=== PATIENT | male | born 1985 | race Caucasian/White ===

== ENCOUNTER → 2017-06-11 09:28 | Outpatient (CLI) | payer OTHER, SELFPAY ==
--- NOTE | 2017-06-11 09:37 | RAD_ITS ---
STUDY: X-RAY - LUMBAR SPINE REASON FOR EXAM: Male, 31 years old. Low back pain. TECHNIQUE: 5 view(s) of the lumbar spine were obtained. COMPARISON: 03/03/2014 FINDINGS: Normal lumbar lordosis. There is no substantial scoliosis. There is a normal alignment of the vertebrae. Normal vertebral bodies and endplates. Normal disc space heights. There is no demonstrated fracture. The soft tissue structures are unremarkable. RAD/L/S Spine Min 4 Views IMPRESSION: Normal x-ray examination of the lumbar spine. Electronically Signed: Jose Irving MD at 17:41 EDT , Service support ,
== END ==
PROVIDERS: Family Provider Family Medicine; PCP Family Medicine; Visit Provider Family Medicine
DX: M51.16 Intervertebral disc disorders with radiculopathy, lumbar region (principal)
CPT/HCPCS: 72110

== ENCOUNTER 2019-03-28 17:03 | Emergency (ER) | payer OTHER, SELFPAY ==
[2019-03-28 17:04] VITALS: BP 123/76; PULSE 112; RESP 17; TEMP 36.8; O2SAT 99; BMI 24.0
[2019-03-28 17:37] LABS: Absolute Neutrophil Count 8.5 X10^3/uL (2.0-7.7); Basophil# 0.05 X10^3/uL; Basophil% 0.4 % (0-1); Eosinophil# 0.08 X10^3/uL; Eosinophils% 0.7 % (0-5); Hematocrit 50.1 % (40-54); Hemoglobin 17.1 g/dL (13.0-16.5); Lymphocyte % 14.9 % (19-41); Mean Corp Hgb Conc 34.1 g/dL (32-36); Mean Corpuscular Hgb 30.9 pg (27.0-32.0); Mean Corpuscular Volume 90.6 fL (80-94); Mean Platelet Vol. 10.7 fl (6.2-12.0); Monocyte# 1.07 X10^3/uL; Monocyte% 9.4 % (0-10); NRBC Flagged by Analyzer 0 % (0-5); Neutrophil % 74.3 % (47-70); Platelet Count 300 K/mm3 (150-450); RBC Distribution Width CV 12.1 % (11.6-14.6); RBC Distribution Width SD 39.7 fl (35.1-43.9); Red Blood Count 5.53 M/mm3 (4.6-6.2); White Blood Count 11.4 K/mm3 (4.4-11.0)
[2019-03-28 17:47] LABS: Anion Gap 6 (5-15); BUN 8 mg/dL (7-18); BUN/Creat Ratio 6.3 RATIO (10-20); Calcium,Total 9.9 mg/dL (8.5-10.1); Chloride 105 mmol/L (98-107); Creatinine, Serum 1.27 mg/dL (0.70-1.30); EST Glomerular Filtration Rate 69 mL/min (>60); Est Glom Filt Rate - Afr Amer 84 mL/min (>60); Estimated Creatinine Clearance 80.04 ml/min; Glucose 110 mg/dL (74-106); Potassium 4.2 mmol/L (3.5-5.1); Sodium Level 142 mmol/L (136-145)
--- NOTE | 2019-03-28 18:12 | ED.DCSUM_ITS ---
History of Present Illness Chief Complaint: Abd Pain Informant: Patient Onset: Yesterday Narrative: Reports upper mid abdominal pain since 10:30 PM last evening. Large normal bowel movement at 11:30 PM. Started vomiting multiple times until 4 AM along with one loose stool. No hematemesis, melena, hematochezia. He ate leftover salad and chicken for the day prior. Father had prescription for Zofran taken at 7 AM. Arrival to ED currently 6 PM, had one emesis in the ED. Decreased oral intake. No urinary symptoms. History of anxiety on medications. Surgical history is only pilonidal cyst. No allergies. Denies any significant alcohol history. Prior similar symptoms: No Past Medical History - Allergies and Home Meds Allergies/Adverse Reactions: Allergies No Known Allergies Allergy (Verified 03/28/19 17:03) Primary Care Physician: Yassine Fernandez MD [Primary Care Provider] - Past Medical History: - - Anxiety Surgical History: - - Pilonidal cyst Physical Exam Vital Signs/Narrative: Vital Signs Temp Pulse Resp BP Pulse Ox 03/28/19 17:04 98.3 F 112 H 17 123/76 H 99 Inital Vital Signs reviewed: Yes General: Well nourished, Well developed, No Acute Distress Head: Normocephalic, Atraumatic Eyes: Perrl, EOMI ENT: Moist mucous membranes, No rhinorrhea, Dry mucous membranes Neck: Supple, Nontender Cardiovascular: Regular rate, No murmurs, Tachycardia Respiratory: No distress, CTA bilaterally, Chest nontender Abdomen: Soft, Nondistended, Normal bowel sounds, - - Tenderness epigastric and left lower quadrant, negative Boss's and McBurney's. No guarding or rebound. Back: Nontender, Normal Inspection Extremities: Nontender, No edema Skin: Normal color, No rash Neurological: Alert, Oriented x3, Cranial nerves II-XII grossly intact, Normal Strength, Normal Sensation Psychological: Normal affect, Normal Mood Diagnostic/Tx/Re-eval Clinical Impression(s) from Imaging Studies Abdomen/Pelvis CT 03/28/19 19:22 IMPRESSION: Fluid-filled loops of right hemicolon and transverse colon suggesting diarrhea. No evidence of acute findings otherwise. Questionable bladder wall thickening versus underdistention of the bladder Electronically Signed: Rusty Keith DO at 20:19 EST Tel , Service support , Abnormal Lab Results 03/28/19 03/28/19 03/28/19 17:07 17:07 17:07 WBC 11.4 H RBC 5.53 Hgb 17.1 H Hct 50.1 MCV 90.6 MCH 30.9 MCHC 34.1 RDW Std Deviation 39.7 RDW Coeff of Gabriela 12.1 Plt Count 300 MPV 10.7 Immature Gran % (Auto) 0.300 Neut % (Auto) 74.3 H Lymph % (Auto) 14.9 L Beaver % (Auto) 9.4 Eos % (Auto) 0.7 Baso % (Auto) 0.4 Absolute Neuts (auto) 8.5 H Absolute Lymphs (auto) 1.70 Nucleated RBC % 0 Sodium 142 Potassium 4.2 Chloride 105 Carbon Dioxide 31.0 Anion Gap 6 BUN 8 Creatinine 1.27 Estim Creat Clear Calc 80.04 Est GFR (MDRD) Af Amer 84 Est GFR (MDRD) Non-Af 69 BUN/Creatinine Ratio 6.3 L Glucose 110 H Calcium 9.9 Total Bilirubin 0.90 Direct Bilirubin 0.20 AST 12 L ALT 28 Alkaline Phosphatase 106 Total Protein 7.4 Albumin 4.1 Globulin 3.3 Lipase Urine Color Urine Clarity Urine pH Ur Specific [place] Urine Protein Urine Glucose (UA) Urine Ketones Urine Occult Blood Urine Nitrite Urine Bilirubin Urine Urobilinogen Ur Leukocyte Esterase Urine RBC Urine WBC Ur Squamous Epith Cells Urine Bacteria Urine Mucus 03/28/19 03/28/19 17:07 21:00 WBC RBC Hgb Hct MCV MCH MCHC RDW Std Deviation RDW Coeff of Gabriela Plt Count MPV Immature Gran % (Auto) Neut % (Auto) Lymph % (Auto) Beaver % (Auto) Eos % (Auto) Baso % (Auto) Absolute Neuts (auto) Absolute Lymphs (auto) Nucleated RBC % Sodium Potassium Chloride Carbon Dioxide Anion Gap BUN Creatinine Estim Creat Clear Calc Est GFR (MDRD) Af Amer Est GFR (MDRD) Non-Af BUN/Creatinine Ratio Glucose Calcium Total Bilirubin Direct Bilirubin AST ALT Alkaline Phosphatase Total Protein Albumin Globulin Lipase 129 Urine Color Yellow Urine Clarity Sl. Cloudy Urine pH 7.0 Ur Specific [place] 1.005 Urine Protein Negative Urine Glucose (UA) Normal Urine Ketones 50 H Urine Occult Blood Negative Urine Nitrite Negative Urine Bilirubin Negative Urine Urobilinogen Normal Ur Leukocyte Esterase Negative Urine RBC 0 SEEN Urine WBC 0 SEEN Ur Squamous Epith Cells 0-5 SEEN Urine Bacteria 0 SEEN Urine Mucus 0 SEEN - Medical Decision Making Patient tender epigastric left lower quadrant. Declined any pain medicines. Labs white count 11.4 normal lipase and LFTs. Given Zofran there is IV with no emesis. Pepcid was added for his epigastric tenderness, CT abdomen and pelvis IV contrast nonspecific fluid-filled bowels normal appendix, no signs of diverticulitis. There is a thickened bladder however could be decompressed, eventual urine negative for any blood or infection there was ketones. Given total 2 L of IV fluids. Prescription for Bentyl as needed he has Zofran at [facility]. He will follow-up as an outpatient. All questions were answered. ED Disposition - Plan for ED Patient: Disposition: Home or Assisted Living Diagnosis: Abdominal pain, Vomiting, Diarrhea Instructions: ABDOMINAL PAIN, Unkown Cause, (Male), DIET, Vomiting or Diarrhea [6yr-Adult] Prescriptions: Dicyclomine HCl [Bentyl] 20 mg PO Q8H PRN PRN #12 capsule PRN Reason: abdominal pain Referrals: Yassine Fernandez MD [Primary Care Provider] - 3-5 Days if not improving
[2019-03-28] MEDS: 0.9% Normal Saline 1,000 ML 999 ML IV ×2 (18:18→20:00)
[2019-03-28] MEDS: Ondansetron 4 MG/2 ML Vial IV (18:30)
[2019-03-28 18:52] LABS: AST(SGOT) 12 U/L (15-37); Alanine Aminotransfer ALT/SGPT 28 U/L (16-61); Albumin, Serum 4.1 g/dL (3.2-5.0); Alkaline Phosphatase 106 U/L (45-117); Globulin 3.3 g/dL (2.2-4.2); Protein, Total 7.4 g/dL (6.4-8.2)
[2019-03-28 18:56] LABS: Lipase 129 U/L (73-393)
--- NOTE | 2019-03-28 19:22 | CT_ITS ---
STUDY: CT ABDOMEN AND PELVIS WITHOUT CONTRAST REASON FOR EXAM: Male, 33 years old. RIGHT UPPER MID ABD PAIN N/V/D SINCE LAST NIGHT. H/O GERD. RADIATION DOSAGE (If Supplied By Facility): CTDIvol = ( 9.8 ) mGy, DLP = ( 487.61 ) mGycm TECHNIQUE: Transaxial images were obtained from the dome of the diaphragm to the symphysis pubis without oral contrast, and without intravenous contrast. Sagittal and coronal images were reconstructed. Individualized dose optimization techniques were used for this CT. COMPARISON: None. FINDINGS: The visualized lung bases are unremarkable. The visualized portions of the heart are within normal limits. Normal liver. Normal gallbladder and extrahepatic biliary system. Normal spleen. Normal pancreas. Normal bilateral adrenal glands. Normal right kidney. Normal left kidney. Normal visualized stomach. Normal small intestine. Fluid-filled right hemicolon and transverse colon suggesting diarrhea. No evidence of acute diverticulitis or colitis. The appendix is visualized and appears normal. Normal abdominal aorta. Normal inferior vena cava. Normal retroperitoneum. Questionable bladder wall thickening versus underdistention. Normal visualized prostate gland. Normal abdominal wall. Normal osseous structures. CT/Abdomen/Pelvis W IV Cont ONLY IMPRESSION: Fluid-filled loops of right hemicolon and transverse colon suggesting diarrhea. No evidence of acute findings otherwise. Questionable bladder wall thickening versus underdistention of the bladder Electronically Signed: Rusty Keith DO at 20:19 EST Tel , Service support ,
[2019-03-28 19:51] VITALS: BP 133/79; PULSE 86
[2019-03-28] MEDS: Famotidine 200 MG/20 ML MDV 20 MG in 0.9% Normal Saline (Pres. free 8 ML 300 MG IV (19:51)
[2019-03-28 21:11] LABS: Bacteria 0 SEEN /hpf (None Seen); Mucous, Urine 0 SEEN /hpf (<or=2+); Red Blood Cells-Urine 0 SEEN /hpf (0-5); White Blood Cells 0 SEEN /hpf (0-5)
[2019-03-28 21:14] LABS: Color, Urine Yellow (Yellow); Glucose, Dipstick Normal (Normal); Ketone-Dipstick 50 mg/dl (Negative); Leukocyte Esterase-Dipstick Negative /ul (Negative); Nitrite-Dipstick Negative (Negative); Occult Blood-Urine Negative /ul (Negative); Protein-Dipstick Negative (Negative); Specific Gravity, Urine 1.005 (1.002-1.030); Urine Bilirubin Dipstick Negative (Negative); Urine Clarity Sl. Cloudy (Clear); Urine Urobilinogen Normal (Normal)
[2019-03-28 21:28] LABS: Squamous Epithelial Cells - UA 0-5 SEEN /hpf (0-5)
== END 2019-03-28 21:56 | disposition home or self-care (01) ==
PROVIDERS: Emergency Provider Emergency Medicine; PCP Family Medicine
DX: R10.816 Epigastric abdominal tenderness (principal); R11.2 Nausea with vomiting, unspecified; R19.7 Diarrhea, unspecified; F41.9 Anxiety disorder, unspecified; Z79.899 Other long term (current) drug therapy
CPT/HCPCS: 36415; 74177; 80048; 80076; 81001; 83690; 85025; 96361; 96374; 96375; 99283; J7030; Q9967; A4216; J2405; J3490

== ENCOUNTER → 2020-03-12 | Outpatient (CLI) | payer OTHER, SELFPAY | END | disposition home or self-care (01) | LOC: LABSPEC 15:30 | PROVIDERS: PCP Family Medicine; Visit Provider Registered Nurse | DX: U07.1 COVID-19 (principal); J06.9 Acute upper respiratory infection, unspecified | CPT/HCPCS: 87633; 87635; U0005; U0003 ==

== ENCOUNTER → 2021-10-05 | Outpatient (CLI) | payer OTHER, SELFPAY ==
[2021-10-05 12:04] LABS: Absolute Lymphocyte Count 1.62 X10^3/uL (0.83-4.51); Absolute Neutrophil Count 3.7 X10^3/uL (2.0-7.7); Basophil# 0.02 X10^3/uL; Basophil% 0.3 % (0-1); Eosinophil# 0.22 X10^3/uL; Eosinophils% 3.6 % (0-5); Hematocrit 42.8 % (40-54); Hemoglobin 14.6 g/dL (13.0-16.5); Lymphocyte # 1.62 X10^3/ul (0.83-4.51); Lymphocyte % 26.3 % (19-41); Mean Corp Hgb Conc 34.1 g/dL (32-36); Mean Corpuscular Hgb 31.2 pg (27.0-32.0); Mean Corpuscular Volume 91.5 fL (80-94); Mean Platelet Vol. 11.6 fl (6.2-12.0); Monocyte# 0.56 X10^3/uL; Monocyte% 9.1 % (0-10); NRBC Flagged by Analyzer 0 % (0-5); Neutrophil # 3.73 X10^3/uL (2.7-7.7); Neutrophil % 60.4 % (47-70); Platelet Count 221 K/mm3 (150-450); RBC Distribution Width CV 12.4 % (11.6-14.6); Red Blood Count 4.68 M/mm3 (4.6-6.2); White Blood Count 6.2 K/mm3 (4.4-11.0)
[2021-10-05 12:27] LABS: Vitamin B12 306 pg/mL (211-911); Vitamin D,25 Hydroxy 55.1 ng/mL
[2021-10-05 12:34] LABS: ALB/GLOB Ratio 1.1 RATIO (0.9-2.4); AST(SGOT) 14 U/L (15-37); Alanine Aminotransfer ALT/SGPT 26 U/L (16-61); Albumin, Serum 2.9 g/dL (3.2-5.0); Alkaline Phosphatase 69 U/L (45-117); Anion Gap 4 (5-15); BUN 22 mg/dL (7-18); BUN/Creat Ratio 27.2 RATIO (10-20); Calcium,Total 8.5 mg/dL (8.5-10.1); Chloride 110 mmol/L (98-107); Cholesterol 110 mg/dL (200); Creatinine, Serum 0.81 mg/dL (0.70-1.30); EST Glomerular Filtration Rate 115 mL/min (>60); Est Glom Filt Rate - Afr Amer 139 mL/min (>60); Ferritin 11 ng/mL (26-388); Globulin 2.6 g/dL (2.2-4.2); Glucose 86 mg/dL (74-106); High Density Lipoprotein 34 mg/dL; Iron 75 ug/dL (65-175); Potassium 4.4 mmol/L (3.5-5.1); Protein, Total 5.5 g/dL (6.4-8.2); Sodium Level 140 mmol/L (136-145); Thyroid Stim Hormone (TSH) 1.45 uIU/mL (0.358-3.74); Triglycerides 90 mg/dL; Very Low Density Lipoprotein 18 mg/dL (5-40)
== END | disposition home or self-care (01) ==
LOC: MFPLAB 09:41
PROVIDERS: PCP Family Medicine; Referring Provider Family Medicine; Visit Provider Family Medicine
DX: F50.2 Bulimia nervosa (principal); Z13.220 Encounter for screening for lipoid disorders
CPT/HCPCS: 36415; 80053; 80061; 82306; 82607; 82728; 83540; 84443; 85025

== ENCOUNTER 2022-03-28 10:11 | Day surgery (SDC) | payer OTHER, SELFPAY ==
[2022-03-28] VITALS (7 sets, daily range): BP systolic 86–113; BP diastolic 56–70; PULSE 70–85; RESP 12–18; TEMP 36.2–36.4; O2SAT 94–100; BMI 24.3
--- NOTE | 2022-03-28 | GASB_PTH ---
PATIENT: LORETA GOEL LOC: EN U#:[id number] AGE/SX: 36/M ROOM: RE03/28/[address]: Dr. Torrey Ruiz MD : 1985 BED: DIS: 03/28/2022 SPEC #: [id number] RECD: 03/28/22 14:13 STATUS: NICOLLE OTILIA #: [id number] LAURITA: 03/28/22 00:[address]: Torrey Ruiz DEPT: SURGICAL PATHOLOGY RECD BY: Dakota Evans ENTERED: 03/28/22 14:14 SP TYPE: Gastric Bx OTHR DR: Dr. Keo Fernandez MD Tissues: A - Duodenum, NOS B - Gastric mucous membrane C - Esophageal mucous membrane Procedures: Special Stain Group II Surgery Specimen Level IV Alcian Blue/PAS (control) HEADER OPERATION: EGD ([facility] [place]) with dilation and biopsy PRE-OP DIAGNOSIS: GERD TISSUE SUBMITTED: A ? Duodenum biopsy, B ? Prepyloric biopsy, C ? Distal esophagus MICROSCOPIC DIAGNOSIS A. Duodenum, biopsy: No pathologic change. B. Prepyloric biopsy: Marked chronic inflammation with focal acute inflammation. Focal intestinal metaplasia. No evidence of dysplasia. See comment. C. Distal esophagus, biopsy: Gastroesophageal junctional mucosa with chronic inflammation. No evidence of goblet cell metaplasia. See comment. AM:samson 03/29/2022 COMMENT B. The results of immunohistochemistry for Helicobacter pylori will be reported separately ([id number]). Immunohistochemistry ([id number]) for P53 and Ki-67 will be performed and results will be reported separately. Alcian blue/PAS stain with matched control supports the above diagnosis. C. Alcian blue/PAS stain with matched control supports the above diagnosis. MICROSCOPIC DESCRIPTION Slides are reviewed. GROSS DESCRIPTION A - Received in fixative is one container labeled with the patient's name and designated duodenum biopsy. The specimen consists of one irregular fragment of light hull soft tissue that measures 0.3 x 0.3 x 0.1 cm. The specimen is totally submitted in one cassette. B - Received in fixative is one container labeled with the patient's name and designated prepyloric biopsy. The specimen consists of one irregular fragment of light hull soft tissue that measures 0.4 x 0.3 x 0.1 cm. The specimen is totally submitted in one cassette. C - Received in fixative is one container labeled with the patient's name and designated distal esophagus. The specimen consists of multiple irregular fragments of light hull soft tissue that in aggregate measure 1 x 0.5 x 0.1 cm. The specimen is totally submitted in one cassette. / TREVOR:samson 03/28/2022 TC:3 CPT: 85592 x3, 60019 x2
[2022-03-28] MEDS: Lactated Ringers 1,000 ML 15 ML IV (10:33)
--- NOTE | 2022-03-28 10:54 | HP.PCM_ITS ---
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 Required: No Is patient in pain?: No Allergies No Known Allergies Allergy (Verified 03/21/22 12:29) Medications duloxetine 60 mg capsule,delayed release 120 mg PO DAILY 03/28/19 [History Confirmed 03/21/22] cimetidine 200 mg tablet (Tagamet HB) 200 mg PO QAC PRN 03/21/22 [History Confirmed 03/21/22] loperamide 2 mg tablet 2 mg PO Q6H PRN 03/21/22 [History Confirmed 03/21/22] omeprazole 20 mg capsule,delayed release 20 mg PO DAILY 03/21/22 [History Confirmed 03/21/22] PFSH Medical History?(Updated 03/21/22 @ 12:27 by Destiney Marcelo) Anxiety Depression Surgical History?(Updated 03/21/22 @ 12:27 by Destiney Marcelo) History of esophagogastroduodenoscopy (EGD) S/P surgical removal of pilonidal cyst S/P tonsillectomy Family History?(Updated 03/21/22 @ 12:28 by Destiney Marcelo) Father Cancer ?? ? prostate AsthmaGrandfather Cancer ?? ? lung Social History?(Updated 03/21/22 @ 12:28 by Destiney Marcelo) Smoking Status:? Never smoker alcohol intake:? never substance use type:? does not use HPI HPI HPI: 36-year-old gentleman who is being referred by Dr. Keo Fernandez for surgical consultation regarding gastroesophageal reflux disease.? Written copy of my surgical consult recommendations will return to him.? 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 He used to take [id number] Zantac and then qyfw-oek-vblnnaz Tagamet and tvlw-mzv-nbvhmjp omeprazole.? He managed this for many years going all the way back to his teenage years.? Recently over the past 3 weeks however he has had significant epigastric pain discomfort reflux.? He has been taking chewable Pepto-Bismol..? He has been exercising more for the past 3 weeks.? His weights been basically stable.? He denies cardiac or pulmonary or diabetes or DVT.? He does have some stress in his life. I have personally reviewed his pathology report of June 11, 2003.? That demonstrated at that time fragments of duodenal mucosa with moderate acute and chronic inflammation. ROS General General: No weight change, appetite, fatigue, colon cancer, breast cancer or weakness HEENT HEENT: No difficulty swallowing, eye injury, eye surgery, swollen glands or hoarseness Endo Endocrine: No thyroid disease, diabetes mellitus, thyroid cancer, Hair loss, heat intolerance or cold intolerance Skin Skin: No rash or changing moles Breast Breast: No left breast lump, right breast lump, nipple discharge, breast pain, abnormal mammogram, abnormal US or breast enlargement Musc Musculoskeletal: No back problems, arthritis, rheumatoid arthritis, gout or joint pain Cardio Cardiovascular: No murmur, pacemaker, heart disease, atrial fibrillation, high blood pressure, heart attack, heart stent, palpitations, shortness of breat with exertion or chest pain Psych Psychiatric: Yes depression and anxiety; No hearing voices Resp Respiratory: No shortness of breath, No sleep apnea, No cough, No COPD, No asthma, No emphysema and No wheezing Gastro Gastrointestinal: No abdominal pain, No nausea or vomiting, No diarrhea, No constipation, No blood in stool, Yes acid reflux, No hemorrhoids, No ulcers, No gallbladder problem and No black,tarry stools Tito Hematologic: No blood thinners, No blood disorders, No bleeding, No anemia and No blood clots Neuro Neurologic: No system reviewed and no additional complaints, except as documented, No as per HPI, No abnormal gait, No abnormal hearing, No abnormal movements, No abnormal speech, No behavioral changes, No burning sensations, No confusion, No convulsions, No disequilibrium, No dizziness, No localized weakness, No frequent falls, No headache(s), No lack of coordination, No loss of vision, No memory loss, No numbness, No other visual disturbances, No radicular pain, No restless legs, No sensory deficit, No syncope, No tingling, No tremor(s), No weakness and No other Exam Const General: cooperative, healthy appearing, comfortable and no acute distress [facility] Head: normal to inspection Neck Neck: normal visual inspection Chest Chest palpation & inspection: normal inspection of the chest Resp Effort & Inspection: normal respiratory effort Auscultation: clear to auscultation bilaterally Cardio Rate: regular rate Rhythm: regular rhythm GI Inspection: normal to inspection Palpation: soft and no hepatosplenomegaly Musc Cervical Spine: normal cervical lordosis Skin General: no rashes or lesions noted Neuro Cognition: normal cognition Extrem General: no calf tenderness Psych Appearance: grossly normal Assessment and Plan Assessment and Plan (1) GERD (gastroesophageal reflux disease): ?Status:?Acute ?Plan: The patient appears to have significant epigastric and reflux symptoms.? He has tried pctb-doh-wuizkgi medications now with incomplete relief.? I recommended the patient a esophagogastroduodenoscopy with possible biopsy or polypectomy as indicated.? He is aware of the technique, benefit, risk of alternatives.? He has had an opportunity to ask and have questions answered.? We will schedule and expedite his care.? I appreciate the opportunity of assisting with his surgical care. Copy: Dr. Keo Ruiz M.D., F.A.C.S I have examined the patient and the H&P has been reviewed. There are no clinical changes since date of exam. Torrey Ruiz M.D., F.A.C.S.
--- NOTE | 2022-03-28 11:15 | IMM_PTH ---
PATIENT: LORETA GOEL LOC: EN U#:[id number] AGE/SX: 36/M ROOM: RE03/28/[address]: Dr. Torrey Ruiz MD : 1985 BED: DIS: 03/28/2022 SPEC #: [id number] RECD: 03/28/22 14:44 STATUS: NICOLLE RELuis #: [id number] LAURITA: 03/28/22 11:[address]: Torrey Ruiz DEPT: IMMUNOHISTOCHEMISTRY RECD BY: Ayana Bustillos ENTERED: 03/28/22 14:44 SP TYPE: IMMUNO OTHR DR: Dr. Keo Fernandez MD Tissues: B - Pyloric portion of stomach Procedures: H Pylori (initial) KI-67 (add) P53 (add) PHYSICIAN & INSTITUTION [place] [id number] SPECIMEN INFORMATION: Tissue Source: B ? Prepyloric biopsy Clinical Info: GERD Specimen Number: [id number] B CPT code: 19585, 78390 x2 METHODOLOGY: Deparaffinized sections of prefer/formalin-fixed tissue or PAP/DQ stained slides are incubated with monoclonal/polyclonal antibodies/oligonucleotide probes. Localization is made via biotin free immunoperoxidase method. Appropriate controls are performed and reacted as expected. Results on target cell population are indicated in the following table: RESULTS: ANTIBODY / CLONE RESULT Block B H Pylori (polyclonal) negative P53 (DO-7) negative Ki-67 (30-9) positive, low These tests were developed and their performance characteristics determined by [facility]. They may not have been cleared or approved by the U.S. Food and Drug Administration. The FDA has determined that such clearance or approval is not necessary. The above immunohistochemical/dualISH markers are ordered and reviewed by the Pathologist. INTERPRETATION: B. Prepyloric biopsy: No evidence of dysplasia. AM:samson 03/31/2022
--- NOTE | 2022-03-28 11:40 | OP.EGD_ITS ---
Patient Name: Casimiro Conrad Procedure Date: 03/28/2022 10:57 AM Date of : 1985 Age: 36 Procedure: Upper GI endoscopy Indications: Epigastric abdominal pain Providers: Torrey Ruiz MD Medicines: See the Anesthesia note for documentation of the administered medications Complications: No immediate complications. Procedure: Pre-Anesthesia Assessment: - Prior to the procedure, a History and Physical was performed, and patient medications and allergies were reviewed. The patient's tolerance of previous anesthesia was also reviewed. The risks and benefits of the procedure and the sedation options and risks were discussed with the patient. All questions were answered, and informed consent was obtained. Prior Anticoagulants: The patient has taken no previous anticoagulant or antiplatelet agents. ASA Grade Assessment: II - A patient with mild systemic disease. After reviewing the risks and benefits, the patient was deemed in satisfactory condition to undergo the procedure. After obtaining informed consent, the endoscope was passed under direct vision. Throughout the procedure, the patient's blood pressure, pulse, and oxygen saturations were monitored continuously. The gastroscope was introduced through the mouth, and advanced to the second part of duodenum. The upper GI endoscopy was somewhat difficult due to abnormal anatomy. The patient tolerated the procedure well. Scope In: 11:06:29 AM Scope Out: 11:28:31 AM Total Procedure Duration Time 0 hours 22 minutes 2 seconds Findings: LA Grade A (one or more mucosal breaks less than 5 mm, not extending between tops of 2 mucosal folds) esophagitis with no bleeding was found 38 cm from the incisors. Biopsies were taken with a cold forceps for histology. A medium-sized hiatal hernia was present. A small amount of food (residue) was found on the greater curvature of the stomach. A benign-appearing, intrinsic severe stenosis was found at the pylorus. This was traversed. A TTS dilator was passed through the scope. Dilation with a 12-13.5-15 mm balloon dilator was performed to 12 mm. The dilation site was examined following endoscope reinsertion and showed moderate improvement in luminal narrowing. Estimated blood loss was minimal. Diffuse severely erythematous mucosa with active bleeding and with no stigmata of bleeding was found in the duodenal bulb. Biopsies were taken with a cold forceps for histology. Impression: - LA Grade A reflux esophagitis. Biopsied. - Medium-sized hiatal hernia. - A small amount of food (residue) in the stomach. - Gastric stenosis was found at the pylorus. I was unable to advance the upper scope past this area and so I balloon dilated to 12 mm. I was then able to advance the endoscope into the duodenum. - Erythematous duodenopathy. Biopsied. Recommendation: - Discharge patient to home. - Full liquid diet. - Continue present medications. - Use Prilosec (omeprazole) 40 mg PO BID. - Return to my office in 1 week. Procedure Code(s): --- Professional --- 22726, Esophagogastroduodenoscopy, flexible, transoral; with dilation of gastric/duodenal stricture(s) (eg, balloon, bougie) 43336, 59, Esophagogastroduodenoscopy, flexible, transoral; with biopsy, single or multiple Diagnosis Code(s): --- Professional --- K21.0, Gastro-esophageal reflux disease with esophagitis K44.9, Diaphragmatic hernia without obstruction or gangrene K31.1, Adult hypertrophic pyloric stenosis K31.89, Other diseases of stomach and duodenum R10.13, Epigastric pain CPT copyright 2017 [employer]. All rights reserved. The codes documented in this report are preliminary and upon sand caster apprentice review may be revised to meet current compliance requirements. Torrey Ruiz MD 03/28/2022 11:39:27 AM This report has been signed electronically. Number of Addenda: 0 Note Initiated On: 03/28/2022 10:57 AM
--- NOTE | 2022-03-28 11:40 | OP.CCLET_ITS ---
03/28/2022 Yassine Fernandez [address] [place] [address] Re : Upper GI endoscopy procedure for Casimiro Conrad Dear Dr. Fernandez This procedure was performed on Monday, March 28, 2022. My impressions and recommendations are as follows: Impressions : - LA Grade A reflux esophagitis. Biopsied. - Medium-sized hiatal hernia. - A small amount of food (residue) in the stomach. - Gastric stenosis was found at the pylorus. I was unable to advance the upper scope past this area and so I balloon dilated to 12 mm. I was then able to advance the endoscope into the duodenum. - Erythematous duodenopathy. Biopsied. Recommendations : - Discharge patient to home. - Full liquid diet. - Continue present medications. - Use Prilosec (omeprazole) 40 mg PO BID. - Return to my office in 1 week. My findings are described in the full procedure note, which is enclosed. If I can be of further assistance, please feel free to contact me at Doctor phone number(s): Work: . Sincerely, Torrey Ruiz MD 03/28/2022 11:39:27 AM This report has been signed electronically.
== END 2022-03-28 13:28 | disposition home or self-care (01) ==
LOC: EN 10:12 → AC 10:14
PROVIDERS: PCP Family Medicine; Referring Provider Surgery; Visit Provider Surgery
PROC: 0DJ08ZZ Inspection of Upper Intestinal Tract, Via Natural or Artificial Opening Endoscopic (ICD-10-PCS; CPT 43235; principal; 2022-03-28 11:10)
DX: K31.1 Adult hypertrophic pyloric stenosis (principal); K21.00 Gastro-esophageal reflux disease with esophagitis, without bleeding; K44.9 Diaphragmatic hernia without obstruction or gangrene; Z79.899 Other long term (current) drug therapy
CPT/HCPCS: 43245; 43239; 88305; 88313; 88341; 88342; J7120; J2405

== ENCOUNTER → 2023-01-15 | Outpatient (CLI) | payer OTHER, SELFPAY ==
--- NOTE | 2023-01-15 07:57 | NM_ITS ---
CLINICAL: 37-year-old male with history of chronic nausea. SEMI-SOLID PHASE 99m Tc SULFUR COLLOID GASTRIC EMPTYING STUDY COMPARISON: None available FINDINGS: The patient was administered 1.2 mCi of 99m Tc sulfur colloid mixed with oatmeal and consumed per os. Image acquisitions in the anterior-posterior projections were obtained for 60 minutes. There is prompt visualization of the stomach. There is no gastroesophageal reflux identified. The T ? raw data emptying was calculated to be 42.83 minutes, (Normal: 12-56 minutes). NM/Gastric Emptying Study IMPRESSION: 1. NORMAL 99m Tc sulfur colloid semi-solid phase (oatmeal) gastric emptying imaging examination. A. There is normal and preserved semi-solid phase gastric emptying compared to normal controls. (Omar et al, J Nucl Med Tech 38: 186, 2010). Electronically Signed: Donald Urena DO at 22:07 EST ,
== END | disposition home or self-care (01) ==
LOC: NM 07:57
PROVIDERS: PCP Family Medicine; Referring Provider Internal Medicine Gastroenterology; Visit Provider Internal Medicine Gastroenterology
DX: K31.1 Adult hypertrophic pyloric stenosis (principal)
CPT/HCPCS: 78264; A9541

== ENCOUNTER 2023-06-11 08:42 | Outpatient (CLI) | payer OTHER, SELFPAY ==
--- NOTE | 2023-06-11 | GASB_PTH ---
PATIENT: LORETA GOEL LOC: EN U#:[id number] AGE/SX: 37/M ROOM: RE06/11/[address]: Dr. Kevyn Randle DO : 1985 BED: DIS: 06/11/2023 SPEC #: [id number] RECD: 06/11/23 12:58 STATUS: NICOLLE OTILIA #: [id number] LAURITA: 06/11/23 00:[address]: Kevyn Randle DEPT: SURGICAL PATHOLOGY RECD BY: Dakota Evans ENTERED: 06/11/23 12:58 SP TYPE: Gastric Bx AME DR: Dr. Keo Fernandez MD Tissues: A - Pyloric sphincter B - Duodenum, NOS Procedures: Surgery Specimen Level IV HEADER OPERATION: EGD biopsy PRE-OP DIAGNOSIS: Choi's esophagus TISSUE SUBMITTED: A- Pyloric sphincter, B- Duodenal stricture biopsy MICROSCOPIC DIAGNOSIS A. Pyloric sphincter, biopsy: Moderate to marked acute and chronic gastritis. See comment. B. Duodenal stricture, biopsy: Fragments of duodenal mucosa with focal ulceration, acute and chronic inflammation and granulation tissue reaction. See comment. TREVOR/ 06/12/23 COMMENT A. The results of immunohistochemistry for Helicobacter pylori will be reported separately ([id number]). Correlation with clinical, endoscopic findings and appropriate follow up are necessary. MICROSCOPIC DESCRIPTION Slides are reviewed. GROSS DESCRIPTION A. Received in fixative is one container labeled with the patient's name and designated Pyloric sphincter biopsy. The specimen consists of multiple irregular fragments of light hull soft tissue that in aggregate measure 0.8 x 0.2 x 0.1 cm. The specimen is totally submitted in one cassette. B. Received in fixative is one container labeled with the patient's name and designated Duodenal stricture biopsy. The specimen consists of multiple irregular fragments of light hull soft tissue that in aggregate measure 1.0 x 1.0 x 0.1 cm. The specimen is totally submitted in one cassette. AM/mr 06/11/23 TC:2 CPT:79701r7
[2023-06-11] MEDS: Lactated Ringers 1,000 ML 15 ML IV (06:40)
[2023-06-11 06:41] VITALS: BP 111/71; PULSE 88; RESP 18; TEMP 36.3; O2SAT 100; BMI 26.6
--- NOTE | 2023-06-11 07:30 | IMM_PTH ---
PATIENT: LORETA GOEL LOC: EN U#:[id number] AGE/SX: 37/M ROOM: RE06/11/[address]: Dr. Kevyn Randle DO : 1985 BED: DIS: 06/11/2023 SPEC #: [id number] RECD: 06/11/23 16:25 STATUS: NICOLLE OTILIA #: [id number] LAURITA: 06/11/23 07:[address]: Kevyn Randle DEPT: IMMUNOHISTOCHEMISTRY RECD BY: Ugo Adams ENTERED: 06/11/23 16:26 SP TYPE: IMMUNO OTHR DR: Dr. Keo Fernandez MD Tissues: A - Pyloric sphincter Procedures: H Pylori (initial) PHYSICIAN & INSTITUTION [place] [address] SPECIMEN INFORMATION: Tissue Source: Pyloric sphincter - A Clinical Info: Choi's esophagus Specimen Number: [id number] CPT code: 92970 METHODOLOGY: Deparaffinized sections of prefer/formalin-fixed tissue or PAP/DQ stained slides are incubated with monoclonal/polyclonal antibodies/oligonucleotide probes. Localization is made via biotin free immunoperoxidase method. Appropriate controls are performed and reacted as expected. Results on target cell population are indicated in the following table: RESULTS: ANTIBODY / CLONE RESULT Block A H Pylori (polyclonal) negative These tests were developed and their performance characteristics determined by [facility]. They may not have been cleared or approved by the U.S. Food and Drug Administration. The FDA has determined that such clearance or approval is not necessary. The above immunohistochemical/dualISH markers are ordered and reviewed by the Pathologist. INTERPRETATION: A:. Pyloric sphincter: Negative for Helicobacter pylori organisms. TREVOR/ 06/12/23
--- NOTE | 2023-06-11 07:44 | HP.PCM_ITS ---
History and Physical Date of Admission: 06/11/23 LORETA GOEL, is a 37 M who presents to the office today for follow up. WSA established 1.. with GERD for many years with significant worsening in the last three weeks; OTC medications attempted with varying effectiveness?EGD 03.28.22?LA Grade A esophagitis; medium hiatal hernia; small food residue in stomach; severe intrinsic pyloric stenosis, metaplasia, Balloon 12mm; duodenitis.? WSA OV 2.2.23 noting significant improvement since EGD. ? *BGI established 5.3.23 with ongoing improvement. Likely has esophageal dysmotility secondary to large hiatal hernia. ? OV 10.16. Pt doing well since last visit. Continues to take Omeprazole QD. States HB is controlled with medication and diet. ROS Const Constitutional: No fatigue ENT ENT: No difficulty swallowing Gastro GI: No abdominal pain, belching, bloating, change in bowel habits, change in stool character, coffee ground emesis, constipation, cramping, diarrhea, heartburn, difficulty swallowing, feeling full early, excessive flatus, incontinent of stools, Vomiting blood/hematemesis, Blood in stool, loose stools, Black,tarry stools, nausea/dyspepsia, pain with swallowing, vomiting or other Musc Musculoskeletal: No joint pain Skin Skin: No yellowing of the eye or itchy eyes Psych Psychiatric: No anxiety and No depression Endo Endocrine: No fatigue Aller/Imm Allergy/Immunologic: No itchy eyes Tito/Lymp Hematologic/Lymphatic: No easy bleeding or easy bruising Exam Const General: cooperative, healthy appearing and comfortable Orientation: alert, awake and oriented x3 Quality Reporting Tobacco Screening ([facility] 138) Smoking Status: Never smoker Assessment and Plan Assessment and Plan (1) GERD (gastroesophageal reflux disease): Status: Chronic Qualifiers: Esophagitis presence: with esophagitis Esophagitis bleeding: without hemorrhage Qualified Code(s): K21.00 - Gastro-esophageal reflux disease with esophagitis, without bleeding Plan: 36 yr old male with reflux esophagitis, hiatal hernia, pyloric stenosis. Feeling significantly better since the pyloric stenosis was dilated, and taking PPI BID. Dr Ruiz recommended he establish with [employer] [facility] Dr Randle since he may require alf med mgmt, and repeat EGD. Pt has concern for costs of procedure--the procedure and biopsies were quite expensive. Wonders if he would need fewer bxs on next EGD. His dad Dr Goel asks if Dr Ruiz should do next egd vs Dr Jer, they understand Dr Ruiz wants him to be followed by GI alf. Wondering if he can postpone EGD. (2) Gastric outlet obstruction: Status: Resolved Plan: He has a therapy twice a day. He will continue PPI therapy twice a day we will get a gastric emptying study as he had a lot of food in the stomach prior to Dr. Ruiz during his upper endoscopy and dilation of the pyloric sphincter. I did go over the fact that he does have focal intestinal metaplasia in the setting of inflammation around the pyloric sphincter and I think he should undergo repeat upper endoscopy after has been on medical therapy to really get better biopsies to make sure that there is no underlying precancerous lesions. He said he will talk it over with his father but he will get the gastric emptying study. I have examined the patient and the H&P has been reviewed. There are no clinical changes since date of exam.
[2023-06-11 08:02] VITALS: BP 103/68; BP 111/71; PULSE 81; RESP 16; TEMP 36.1; O2SAT 94
[2023-06-11 08:05] VITALS: BP 110/70; BP 111/71; PULSE 82; RESP 16; O2SAT 88
[2023-06-11 08:10] VITALS: BP 111/71; BP 99/68; PULSE 79; RESP 16; O2SAT 97
--- NOTE | 2023-06-11 08:11 | OP.EGD_ITS ---
Patient Name: Casimiro Conrad Procedure Date: 06/11/2023 7:45 AM Date of : 1985 Age: 37 Procedure: Upper GI endoscopy Indications: Epigastric abdominal pain Providers: Kevyn Randle DO Referring MD: Yassine Fernandez Medicines: Monitored Anesthesia Care Patient Profile: This is a 37 year old male. Refer to note in patient chart for documentation of history and physical. Patient has symptoms. Complications: No immediate complications. Procedure: Pre-Anesthesia Assessment: - Prior to the procedure, a History and Physical was performed, and patient medications and allergies were reviewed. The patient is competent. The risks and benefits of the procedure and the sedation options and risks were discussed with the patient. All questions were answered and informed consent was obtained. Patient identification and proposed procedure were verified by the physician in the pre-procedure area. Mental Status Examination: alert and oriented. Airway Examination: normal oropharyngeal airway and neck mobility. Respiratory Examination: clear to auscultation. CV Examination: normal. Prophylactic Antibiotics: The patient does not require prophylactic antibiotics. Prior Anticoagulants: The patient has taken no anticoagulant or antiplatelet agents. ASA Grade Assessment: II - A patient with mild systemic disease. After reviewing the risks and benefits, the patient was deemed in satisfactory condition to undergo the procedure. The anesthesia plan was to use monitored anesthesia care (MAC). Immediately prior to administration of medications, the patient was re-assessed for adequacy to receive sedatives. The heart rate, respiratory rate, oxygen saturations, blood pressure, adequacy of pulmonary ventilation, and response to care were monitored throughout the procedure. The physical status of the patient was re-assessed after the procedure. After obtaining informed consent, the endoscope was passed under direct vision. Throughout the procedure, the patient's blood pressure, pulse, and oxygen saturations were monitored continuously. The Endoscope was introduced through the mouth, and advanced to the second part of duodenum. The upper GI endoscopy was accomplished without difficulty. The patient tolerated the procedure well. Scope In: 7:52:40 AM Scope Out: 7:58:10 AM Total Procedure Duration Time 0 hours 5 minutes 30 seconds Findings: The examined esophagus was normal. The gastroesophageal junction, cardia, gastric fundus, gastric body, anterior wall of the stomach, greater curvature of the stomach, lesser curvature of the stomach, posterior wall of the stomach, incisura and gastric antrum were normal. A benign-appearing, intrinsic moderate stenosis was found in the prepyloric region of the stomach and at the pylorus. This was traversed. Biopsies were taken with a cold forceps for histology. Verification of patient identification for the specimen was done. Estimated blood loss was minimal. An acquired benign-appearing, intrinsic severe stenosis was found in the duodenal bulb and in the first portion of the duodenum and was traversed after dilation. A TTS dilator was passed through the scope. Dilation with a 15 mm pyloric balloon dilator was performed. The dilation site was examined and showed mild mucosal disruption. Estimated blood loss was minimal. Biopsies were taken with a cold forceps for histology. Verification of patient identification for the specimen was done. Estimated blood loss was minimal. Impression: - Normal esophagus. - Normal gastroesophageal junction, cardia, gastric fundus, gastric body, anterior wall of the stomach, greater curvature of the stomach, lesser curvature of the stomach, posterior wall of the stomach, incisura and antrum. - Gastric stenosis was found in the prepyloric region of the stomach and at the pylorus. Biopsied. - Acquired duodenal stenosis. Dilated. Biopsied. Recommendation: - Discharge patient to home. - Resume previous diet. - Continue present medications. - Await pathology results. Procedure Code(s): --- Professional --- 00560, Esophagogastroduodenoscopy, flexible, transoral; with dilation of gastric/duodenal stricture(s) (eg, balloon, bougie) 69947, 59,51, Esophagogastroduodenoscopy, flexible, transoral; with biopsy, single or multiple CPT copyright 2021 [employer]. All rights reserved. The codes documented in this report are preliminary and upon sas programmer remote review may be revised to meet current compliance requirements. Kevyn Randle DO 06/11/2023 8:10:32 AM This report has been signed electronically. Number of Addenda: 0 Note Initiated On: 06/11/2023 7:45 AM
--- NOTE | 2023-06-11 08:11 | OP.CCLET_ITS ---
06/11/2023 Yassine Fernandez [address] [place] [address] Re : Upper GI endoscopy procedure for Casimiro Conrad Dear Dr. Fernandez This procedure was performed on Sunday, June 11, 2023. My impressions and recommendations are as follows: Impressions : - Normal esophagus. - Normal gastroesophageal junction, cardia, gastric fundus, gastric body, anterior wall of the stomach, greater curvature of the stomach, lesser curvature of the stomach, posterior wall of the stomach, incisura and antrum. - Gastric stenosis was found in the prepyloric region of the stomach and at the pylorus. Biopsied. - Acquired duodenal stenosis. Dilated. Biopsied. Recommendations : - Discharge patient to home. - Resume previous diet. - Continue present medications. - Await pathology results. My findings are described in the full procedure note, which is enclosed. If I can be of further assistance, please feel free to contact me at . Sincerely, Kevyn Randle DO 06/11/2023 8:10:32 AM This report has been signed electronically.
[2023-06-11 08:15] VITALS: BP 103/74; BP 111/71; PULSE 89; RESP 16; TEMP 36.2; O2SAT 98
[2023-06-11 08:36] VITALS: BP 111/71
[2023-06-11 10:07] LABS: Erythrocyte Sedimentation Rate 1 mm/hr (0-20)
[2023-06-11 10:18] LABS: CRP 5.17 mg/L (0.0-3.0)
[2023-06-12 11:08] LABS: Anti-Centromere B Ab <0.2 AI (0.0-0.9); Anti-Chromatin <0.2 AI (0.0-0.9); Anti-Jo <0.2 AI (0.0-0.9); Anti-Scleroderma-70 AB <0.2 AI (0.0-0.9); Anti-dsDNA Ab <1 IU/mL (0-9); RNP Ab <0.2 AI (0.0-0.9); SJOGREN'S Anti-SS-A test < 0.2 AI (0.0-0.9); SJOGREN'S Anti-SS-B test < 0.2 AI (0.0-0.9); Smith Ab <0.2 AI (0.0-0.9)
[2023-06-13 16:09] LABS: ACCA 2 units (0-90); ALCA 4 units (0-60); AMCA 7 units (0-100); Anti-Parietal Cell AB, QN 3.5 Units (0.0-20.0); Cytoplasmic Ab (C-ANCA) <1:20 titer (Neg:<1:20); Deamidated Gliadin IgA 4 units (0-19); Deamidated Gliadin IgG 6 units (0-19); Endomysial Antibody IgA Negative (Negative); Gastrin, Serum 46 pg/mL (0-115); IgG, Quant 332 mg/dL (603-1613); Immunoglobulin A 61 mg/dL (90-386); Immunoglobulin G, Subclass 1 216 mg/dL (248-810); Immunoglobulin G, Subclass 2 90 mg/dL (130-555); Immunoglobulin G, Subclass 3 17 mg/dL (15-102); Immunoglobulin G, Subclass 4 1 mg/dL (2-96); Intrinsic Factor Ab 1.1 AU/mL (0.0-1.1); Perinuclear Ab (P-ANCA) <1:20 titer (Neg:<1:20); gASCA 39 units (0-50); t-Transglutaminase IgA <2 U/mL (0-3)
== END 2023-06-11 08:45 | disposition home or self-care (01) ==
LOC: EN 08:42 → AC 08:42
PROVIDERS: PCP Family Medicine; Referring Provider Family Medicine; Visit Provider Internal Medicine Gastroenterology
PROC: 0DJ08ZZ Inspection of Upper Intestinal Tract, Via Natural or Artificial Opening Endoscopic (ICD-10-PCS; CPT 43235; principal; 2023-06-11 07:25)
DX: K21.00 Gastro-esophageal reflux disease with esophagitis, without bleeding (principal); K31.1 Adult hypertrophic pyloric stenosis; K31.89 Other diseases of stomach and duodenum; K31.5 Obstruction of duodenum; K29.50 Unspecified chronic gastritis without bleeding; K26.9 Duodenal ulcer, unspecified as acute or chronic, without hemorrhage or perforation; K29.80 Duodenitis without bleeding; K22.70 Barrett's esophagus without dysplasia; Z79.899 Other long term (current) drug therapy; Z87.19 Personal history of other diseases of the digestive system
CPT/HCPCS: 43245; 43239; 36415; 82784; 82787; 82941; 83516; 85652; 86036; 86140; 86225; 86235; 86255; 86256; 86340; 86671; 88305; 88342; J7120; J2405

== ENCOUNTER 2023-12-05 05:18 | Day surgery (SDC) | payer OTHER, SELFPAY ==
[2023-12-05] VITALS (9 sets, daily range): BP systolic 95–100; BP diastolic 62–72; PULSE 81–85; RESP 16–18; TEMP 36.3–36.7; O2SAT 95–98; BMI 26.5
--- NOTE | 2023-12-05 | EGD_PTH ---
PATIENT: LORETA GOEL LOC: EN U#:[id number] AGE/SX: 37/M ROOM: RE12/05/[address]: Dr. Kevyn Randle DO : 1985 BED: DIS: 12/05/2023 SPEC #: [id number] RECD: 12/05/23 12:45 STATUS: NICOLLE OTILIA #: [id number] LAURITA: 12/05/23 00:[address]: Kevyn Randle DEPT: SURGICAL PATHOLOGY RECD BY: Dakota Evans ENTERED: 12/05/23 12:45 SP TYPE: EGD BIOPSY AME DR: Dr. Keo Fernandez MD Tissues: Duodenum, NOS Procedures: Surgery Specimen Level IV HEADER OPERATION: EGD with biopsy PRE-OP DIAGNOSIS: GERD TISSUE SUBMITTED: Duodenum biopsy MICROSCOPIC DIAGNOSIS Duodenum, biopsy: Fragments of duodenal mucosa with focal villous blunting and moderate to marked chronic inflammation and mild acute inflammation. See comment. SJ.mr 12/06/2023 COMMENT Correlation with clinical, endoscopic, laboratory findings and appropriate follow up are necessary. MICROSCOPIC DESCRIPTION Slides are reviewed. GROSS DESCRIPTION Received in fixative is one container labeled with the patient's name and designated Duodenum biopsy. The specimen consists of multiple irregular fragments of light hull soft tissue that in aggregate measure 1.5 x 0.5 x 0.1 cm. The specimen is totally submitted in one cassette. 12/05/2023 TC:3 CPT:42105
[2023-12-05] MEDS: Lactated Ringers 1,000 ML 15 ML IV (06:00)
--- NOTE | 2023-12-05 06:29 | PCM.PRE.AN2 ---
ASA Classification* ASA Classification ASA Classification: 2 Assessment & Plan Anesthesia* Anesthesia Assessment Anesthesia Assessment: Discussed sedation and/or anesthesia options, risks, benefits, and alternatives with patient/parents/legal guardian/POA. Questions invited. The patient/parents/legal guardian/POA seems to understand and agrees to proceed with anesthesia plan. Reviewed the physical assessment, medical history, allergy history and patient home medications list prior to surgery/procedure/anesthetic and documented any changes. Performed airway and anesthesia risk assessments. Anesthesia Type Anesthesia Type: MAC History Source History Obtained from:: Patient and Chart Anesthesia Focused Assessment* Temperature: 97.4 F Pulse Rate: 84 Blood Pressure: 100/72 Respiratory Rate: 16 Pulse Ox: 95 Airway Assessment Mouth opens: >3 cm Mallampati Score: II Teeth Condition: Intact Neck Range of motion (ROM): Full ROM Focused Labs Anesthesia Preop lab: CBC WBC 6.2 K/mm3 (4.4-11.0) 10/05/21 09:42 RBC 4.68 M/mm3 (4.6-6.2) 10/05/21 09:42 Hgb 14.6 g/dL (13.0-16.5) 10/05/21 09:42 Hct 42.8 % (40-54) 10/05/21 09:42 Plt Count 221 K/mm3 (150-450) 10/05/21 09:42 CHEMISTRY Potassium 4.4 mmol/L (3.5-5.1) 10/05/21 09:42 Sodium 140 mmol/L (136-145) 10/05/21 09:42 BUN 22 mg/dL (7-18) H 10/05/21 09:42 Creatinine 0.81 mg/dL (0.70-1.30) 10/05/21 09:42 Glucose 86 mg/dL (74-106) 10/05/21 09:42 TSH 1.45 uIU/mL (0.358-3.74) 10/05/21 09:42 COAG Pre-Assessment Diagnosis/Proposed Procedure Planned Operative Procedure(s): EGD Anesthesia History 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 When Was Last Pacemaker Check QUESTION #4 FULL TEXT: You/Your Family Experience fever (hyperthermia) with Anesthesia Last Oral Intake Last Oral intake: Last Oral Intake NPO since 00:00 12/05/23 05:57 Meds taken in AM with sips of No 12/05/23 05:57 water? 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 Female No 12/03/23 09:11 HX of Motion Sickness No 12/03/23 09:11 HX of N/V After Surgery No 12/03/23 09:11 Non-Smoker Yes 12/03/23 09:11 Duration of Surgery greater No 12/03/23 09:11 than 60 minutes Number of Risk Factors 1 12/03/23 09:11 PONV Score Low Risk 12/03/23 09:11 Height & Weight Height & Weight: Anesthesia: Height & Weight Height 5 ft 8 in 12/05/23 05:57 Weight: 79.2 kg 12/05/23 05:57 Body Mass Index (BMI) 26.5 12/05/23 05:57 Respiratory Assessment Respiratory Assessment - apparel sales leader: Respiratory Tract Infection Hx - apparel sales leader Hx Respiratory Tract Infection No 12/03/23 09:11 STOP Sleep Apnea STOP Sleep Apnea - apparel sales leader: STOP Sleep Apnea - apparel sales leader Hx Hypertension No 12/03/23 09:11 Hx Sleep Apnea No 12/03/23 09:11 CPAP BIPAP Do you snore loudly (louder No 12/03/23 09:11 than talking or can be heard Do you often feel tired/ No 12/03/23 09:11 fatigued/ sleepy during daytime? Has anyone observed you stop No 12/03/23 09:11 breathing during sleep? STOP Results Negative 12/03/23 09:11 QUESTION #5 FULL TEXT : Do you snore loudly (louder than talking or can be heard through closed doors)? 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 Specify any problems Hx of Preganancy in last 3 N/A 12/03/23 09:11 Months Nurse Filling Out Transfusion VCHRISTIN 12/03/23 09:11 & Questions: Date: 12/03/23 12/03/23 09:11 Time: 09:12 12/03/23 09:11 Patient unable to answer at this time (ie. confused, unrespo /Reproduction History /Reproductive History - apparel sales leader: /Reproductive Hx- apparel sales leader Hx Now Gestational Age (in weeks): EDC: Hx Hx Para Hx Section SAB No 12/03/23 09:11 Active Medications Active Medications: Current Medications Generic Name Dose Route Start Last Admin Trade Name Freq PRN Reason Stop Dose Admin Lactated Ringer's 1,000 mls @ 15 mls/hr 12/05/23 05:45 12/05/23 06:00 IV 15 mls/hr .Q48H REJI Administration PFSH Medical History Wears glasses History of hiatal hernia Peptic ulcer disease Wears contact lenses Depression Anxiety Back pain Gastric reflux Asthma Non-smoker Pain Depression Anxiety Home Medications ?Medication ?Instructions ?Recorded ?Last Taken ?Type duloxetine 60 mg capsule,delayed 120 mg PO QHS 03/28/19 12/04/23 History release finasteride 1 mg tablet 1 mg PO DAILY 07/05/22 12/04/23 History minoxidil 2.5 mg tablet 5 mg PO DAILY 07/05/22 12/04/23 History montelukast 10 mg tablet 10 mg PO QHS 06/08/23 12/04/23 History celecoxib 200 mg capsule (Celebrex) 200 mg PO DAILY #90 caps 06/18/23 12/04/23 Rx omeprazole 40 mg capsule,delayed 40 mg PO BID 3 months #180 caps 06/18/23 12/04/23 Rx release acetaminophen 325 mg tablet 650 mg PO Q4H PRN pain 12/03/23 Unknown History (Non-Aspirin) Allergy/AdvReac Type Severity Reaction Status Date / Time No Known Allergies Allergy Verified 12/05/23 05:44 Family History Father Cancer prostate Asthma Grandfather Cancer lung Surgical History History of tonsillectomy and adenoidectomy S/P surgical removal of pilonidal cyst History of esophagogastroduodenoscopy (EGD) Social History Smoking Status: Never smoker alcohol intake: never substance use type: does not use Review of Systems (Anesthesia) ROS Narrative System reviewed and no additional complaints, except as documented.
--- NOTE | 2023-12-05 06:50 | PRE.ANES_ITS ---
ASA Classification* ASA Classification ASA Classification: 2 Assessment & Plan Anesthesia* Anesthesia Assessment Anesthesia Assessment: Discussed sedation and/or anesthesia options, risks, benefits, and alternatives with patient/parents/legal guardian/POA. Questions invited. The patient/parents/legal guardian/POA seems to understand and agrees to proceed with anesthesia plan. Reviewed the physical assessment, medical history, allergy history and patient home medications list prior to surgery/procedure/anesthetic and documented any changes. Performed airway and anesthesia risk assessments. Anesthesia Type Anesthesia Type: MAC (see written pre anesthesia record for full assessment) Anesthesia Focused Assessment* Temperature: 97.4 F Pulse Rate: 84 Blood Pressure: 100/72 Respiratory Rate: 16 Pulse Ox: 95 Airway Assessment Mouth opens: >3 cm Mallampati Score: II Focused Labs Anesthesia Preop lab: CBC WBC 6.2 K/mm3 (4.4-11.0) 10/05/21 09:42 RBC 4.68 M/mm3 (4.6-6.2) 10/05/21 09:42 Hgb 14.6 g/dL (13.0-16.5) 10/05/21 09:42 Hct 42.8 % (40-54) 10/05/21 09:42 Plt Count 221 K/mm3 (150-450) 10/05/21 09:42 CHEMISTRY Potassium 4.4 mmol/L (3.5-5.1) 10/05/21 09:42 Sodium 140 mmol/L (136-145) 10/05/21 09:42 BUN 22 mg/dL (7-18) H 10/05/21 09:42 Creatinine 0.81 mg/dL (0.70-1.30) 10/05/21 09:42 Glucose 86 mg/dL (74-106) 10/05/21 09:42 TSH 1.45 uIU/mL (0.358-3.74) 10/05/21 09:42 COAG Pre-Assessment Diagnosis/Proposed Procedure Planned Operative Procedure(s): EGD Anesthesia History 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 When Was Last Pacemaker Check QUESTION #4 FULL TEXT: You/Your Family Experience fever (hyperthermia) with Anesthesia Last Oral Intake Last Oral intake: Last Oral Intake NPO since 00:00 12/05/23 05:57 Meds taken in AM with sips of No 12/05/23 05:57 water? Meds patient instructed to take am of surgery PONV PONV - family and consumer science professor: PONV - family and consumer science professor Female No 12/03/23 09:11 HX of Motion Sickness No 12/03/23 09:11 HX of N/V After Surgery No 12/03/23 09:11 Non-Smoker Yes 12/03/23 09:11 Duration of Surgery greater No 12/03/23 09:11 than 60 minutes Number of Risk Factors 1 12/03/23 09:11 PONV Score Low Risk 12/03/23 09:11 Height & Weight Height & Weight: Anesthesia: Height & Weight Height 5 ft 8 in 12/05/23 05:57 Weight: 79.2 kg 12/05/23 05:57 Body Mass Index (BMI) 26.5 12/05/23 05:57 Respiratory Assessment Respiratory Assessment - family and consumer science professor: Respiratory Tract Infection Hx - family and consumer science professor Hx Respiratory Tract Infection No 12/03/23 09:11 STOP Sleep Apnea STOP Sleep Apnea - family and consumer science professor: STOP Sleep Apnea - family and consumer science professor Hx Hypertension No 12/03/23 09:11 Hx Sleep Apnea No 12/03/23 09:11 CPAP BIPAP Do you snore loudly (louder No 12/03/23 09:11 than talking or can be heard Do you often feel tired/ No 12/03/23 09:11 fatigued/ sleepy during daytime? Has anyone observed you stop No 12/03/23 09:11 breathing during sleep? STOP Results Negative 12/03/23 09:11 QUESTION #5 FULL TEXT : Do you snore loudly (louder than talking or can be heard through closed doors)? 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 Specify any problems Hx of Preganancy in last 3 N/A 12/03/23 09:11 Months Nurse Filling Out Transfusion VCHRISTIN 12/03/23 09:11 & Questions: Date: 12/03/23 12/03/23 09:11 Time: 09:12 12/03/23 09:11 Patient unable to answer at this time (ie. confused, unrespo /Reproduction History /Reproductive History - family and consumer science professor: /Reproductive Hx- family and consumer science professor Hx Now Gestational Age (in weeks): EDC: Hx Hx Para Hx Section SAB No 12/03/23 09:11 Active Medications Active Medications: Current Medications Generic Name Dose Route Start Last Admin Trade Name Freq PRN Reason Stop Dose Admin Lactated Ringer's 1,000 mls @ 15 mls/hr 12/05/23 05:45 12/05/23 06:00 IV 15 mls/hr .Q48H REJI Administration PFSH Medical History Wears glasses History of hiatal hernia Peptic ulcer disease Wears contact lenses Depression Anxiety Back pain Gastric reflux Asthma Non-smoker Pain Depression Anxiety Home Medications ?Medication ?Instructions ?Recorded ?Last Taken ?Type duloxetine 60 mg capsule,delayed 120 mg PO QHS 03/28/19 12/04/23 History release finasteride 1 mg tablet 1 mg PO DAILY 07/05/22 12/04/23 History minoxidil 2.5 mg tablet 5 mg PO DAILY 07/05/22 12/04/23 History montelukast 10 mg tablet 10 mg PO QHS 06/08/23 12/04/23 History celecoxib 200 mg capsule (Celebrex) 200 mg PO DAILY #90 caps 06/18/23 12/04/23 Rx omeprazole 40 mg capsule,delayed 40 mg PO BID 3 months #180 caps 06/18/23 12/04/23 Rx release acetaminophen 325 mg tablet 650 mg PO Q4H PRN pain 12/03/23 Unknown History (Non-Aspirin) Allergy/AdvReac Type Severity Reaction Status Date / Time No Known Allergies Allergy Verified 12/05/23 05:44 Family History Father Cancer prostate Asthma Grandfather Cancer lung Surgical History History of tonsillectomy and adenoidectomy S/P surgical removal of pilonidal cyst History of esophagogastroduodenoscopy (EGD) Social History Smoking Status: Never smoker alcohol intake: never substance use type: does not use Review of Systems (Anesthesia) ROS Narrative System reviewed and no additional complaints, except as documented.
--- NOTE | 2023-12-05 06:56 | HP.PCM_ITS ---
History and Physical Date of Admission: 12/05/23 Chief Complaint: acid reflux Details: LORETA GOEL, is a 37 M who presents to the office today for WSA established 03.21.22 with GERD for many years with significant worsening in the last three weeks; OTC medications attempted with varying effectiveness?EGD 03.28.22?LA Grade A esophagitis; medium hiatal hernia; small food residue in stomach; severe intrinsic pyloric stenosis, metaplasia, Balloon 12mm; duodenitis.? WSA OV 2.2.23 noting significant improvement since EGD. ? *BGI established 5.3.23 with ongoing improvement. Likely has esophageal dysmotility secondary to large hiatal hernia. ? OV 12.18.22 Pt doing well since last visit. Continues to take Omeprazole QD. States HB is controlled with medication and diet. He underwent an upper endoscopy by myself. He was discovered to have severe stricturing disease of the proximal duodenum bulb extending to the second portion of the duodenum. This area was dilated and biopsies were taken. Biopsies had shown acute or chronic inflammation without granuloma formation. I had drawn tissue transglutaminase levels for celiac disease and it came back at a level of 8. He still continues to take Mobic 7.5 to 50 mg once a day for his chronic back pain. He was on Celebrex therapy previously but had it switched to Mobic. He does not get any abdominal pain bloating, cramping, nausea or food intolerance. He denies any black stools. Overall he feels about the same. ROS Const Constitutional: No fatigue ENT ENT: No difficulty swallowing Gastro GI: No abdominal pain, belching, bloating, change in bowel habits, change in stool character, coffee ground emesis, constipation, cramping, diarrhea, heartburn, difficulty swallowing, feeling full early, excessive flatus, incontinent of stools, Vomiting blood/hematemesis, Blood in stool, loose stools, Black,tarry stools, nausea/dyspepsia, pain with swallowing, vomiting or other Musc Musculoskeletal: No joint pain Skin Skin: No yellowing of the eye or itchy eyes Psych Psychiatric: No anxiety and No depression Endo Endocrine: No fatigue Aller/Imm Allergy/Immunologic: No itchy eyes Tito/Lymp Hematologic/Lymphatic: No easy bleeding or easy bruising Exam Const General: cooperative, healthy appearing and comfortable Orientation: alert, awake and oriented x3 Quality Reporting Tobacco Screening ([facility]) Smoking Status: Never smoker Assessment and Plan Assessment and Plan (1) GERD (gastroesophageal reflux disease): Status: Chronic Qualifiers: Esophagitis presence: with esophagitis Esophagitis bleeding: without hemorrhage Qualified Code(s): K21.00 - Gastro-esophageal reflux disease with esophagitis, without bleeding Plan: 36 yr old male with reflux esophagitis, hiatal hernia, pyloric stenosis. Feeling significantly better since the pyloric stenosis was dilated, and taking PPI BID. Dr Ruiz recommended he establish with [facility] Dr Randle since he may require intermediate med mgmt, and repeat EGD. Pt has concern for costs of procedure--the procedure and biopsies were quite expensive. Wonders if he would need fewer bxs on next EGD. His dad Dr Goel asks if Dr Ruiz should do next egd vs Dr Randle, they understand Dr Ruiz wants him to be followed by GI intermediate. Wondering if he can postpone EGD. (2) Gastric outlet obstruction: Status: Resolved Plan: He has a therapy twice a day. He will continue PPI therapy twice a day we will get a gastric emptying study as he had a lot of food in the stomach prior to Dr. Ruiz during his upper endoscopy and dilation of the pyloric sphincter. I did go over the fact that he does have focal intestinal metaplasia in the setting of inflammation around the pyloric sphincter and I think he should undergo repeat upper endoscopy after has been on medical therapy to really get better biopsies to make sure that there is no underlying precancerous lesions. He said he will talk it over with his father but he will get the gastric emptying study. I will stop his Mobic therapy and add sulcal fate liquid 3 times a day along with increasing his Protonix to 40 mg twice daily. I am allowing him to go on Celebrex once a day. Has a little bit better profile regarding peptic ulcer disease of the duodenum then Mobic. We will perform an repeat upper endoscopy after being on maximal outpatient acid suppression in approximately 5 to 6 months. Orders: Orders Enterography Abd/Pel Today F32.A - Depression, unspecified, K21.9 - Gastro- esophageal reflux disease without esophagitis, K31.1 - Adult hypertrophic pyloric stenosis Medications: New sucralfate 10 mL PO TID 3 months 2,700 mL 5RF omeprazole 40 mg PO BID 3 months 180 caps 3RF celecoxib (Celebrex) 200 mg PO DAILY 90 caps 2RF I have examined the patient and the H&P has been reviewed. There are no clinical changes since date of exam.
--- NOTE | 2023-12-05 07:15 | OP.EGD_ITS ---
Patient Name: Casimiro Conrad Procedure Date: 12/05/2023 6:08 AM Date of : 1985 Age: 37 Procedure: Upper GI endoscopy Indications: Epigastric abdominal pain, Chronic peptic ulcer Providers: Kevyn Randle DO Referring MD: Kevyn Randle DO Medicines: Monitored Anesthesia Care Patient Profile: This is a 37 year old male. Refer to note in patient chart for documentation of history and physical. Patient has symptoms of chronic epigastric abdominal pain. Complications: No immediate complications. Procedure: Pre-Anesthesia Assessment: - Prior to the procedure, a History and Physical was performed, and patient medications and allergies were reviewed. The patient is competent. The risks and benefits of the procedure and the sedation options and risks were discussed with the patient. All questions were answered and informed consent was obtained. Patient identification and proposed procedure were verified by the physician in the pre-procedure area. Mental Status Examination: alert and oriented. Airway Examination: normal oropharyngeal airway and neck mobility. Respiratory Examination: clear to auscultation. CV Examination: normal. Prophylactic Antibiotics: The patient does not require prophylactic antibiotics. Prior Anticoagulants: The patient has taken no anticoagulant or antiplatelet agents. ASA Grade Assessment: II - A patient with mild systemic disease. After reviewing the risks and benefits, the patient was deemed in satisfactory condition to undergo the procedure. The anesthesia plan was to use monitored anesthesia care (MAC). Immediately prior to administration of medications, the patient was re-assessed for adequacy to receive sedatives. The heart rate, respiratory rate, oxygen saturations, blood pressure, adequacy of pulmonary ventilation, and response to care were monitored throughout the procedure. The physical status of the patient was re-assessed after the procedure. After obtaining informed consent, the endoscope was passed under direct vision. Throughout the procedure, the patient's blood pressure, pulse, and oxygen saturations were monitored continuously. The Endoscope was introduced through the mouth, and advanced to the second part of duodenum. The upper GI endoscopy was accomplished without difficulty. The patient tolerated the procedure well. Scope In: 7:05:14 AM Scope Out: 7:08:27 AM Total Procedure Duration Time 0 hours 3 minutes 13 seconds Findings: The examined esophagus was normal. The entire examined stomach was normal. Localized mucosal flattening was found in the duodenal bulb, in the first portion of the duodenum and in the second portion of the duodenum. Biopsies were taken with a cold forceps for histology. Verification of patient identification for the specimen was done. Estimated blood loss was minimal. An acquired benign-appearing, intrinsic moderate stenosis was found in the duodenal bulb and in the first portion of the duodenum and was traversed. Impression: - Normal esophagus. - Normal stomach. - Flattened mucosa was found in the duodenum, diagnostic of celiac disease. Biopsied. - Acquired duodenal stenosis. Recommendation: - Discharge patient to home. - Resume previous diet. - Continue present medications. - Await pathology results. Procedure Code(s): --- Professional --- 33426, Esophagogastroduodenoscopy, flexible, transoral; with biopsy, single or multiple CPT copyright 2021 [employer]. All rights reserved. The codes documented in this report are preliminary and upon termite treater helper review may be revised to meet current compliance requirements. Kevyn Randle DO 12/05/2023 7:14:07 AM This report has been signed electronically. Number of Addenda: 0 Note Initiated On: 12/05/2023 6:08 AM
--- NOTE | 2023-12-05 07:15 | OP.CCLET_ITS ---
12/05/2023 Yassine Fernandez [address] [place] [address] Re : Upper GI endoscopy procedure for Casimiro Conrad Dear Dr. Fernandez This procedure was performed on Tuesday, December 05, 2023. My impressions and recommendations are as follows: Impressions : - Normal esophagus. - Normal stomach. - Flattened mucosa was found in the duodenum, diagnostic of celiac disease. Biopsied. - Acquired duodenal stenosis. Recommendations : - Discharge patient to home. - Resume previous diet. - Continue present medications. - Await pathology results. My findings are described in the full procedure note, which is enclosed. If I can be of further assistance, please feel free to contact me at . Sincerely, Kevyn Randle, 12/05/2023 7:14:07 AM This report has been signed electronically.
--- NOTE | 2023-12-05 07:18 | PCM.POST.ANE ---
Anesthesia: Postop Eval I Current Vital Signs Temperature: 97.4 F Pulse Rate: 85 Blood Pressure: 98/67 Respiratory Rate: 16 Pulse Ox: 97 Oxygen Delivery Method: Room Air Assessment Airway patent: Yes Spontaneous unlabored respirations: Yes Mental status: Asleep nausea: No Vomiting: No Anesthesia Complication: No Fluid Hydration Crystalloid volume administer (ml): 400 Total IV fluid infused: 400 Progress Note Anesthesia document: Postop Eval 1 completed: Yes
--- NOTE | 2023-12-05 07:27 | PCM.POSTANE2 ---
Anesthesia Postop Eval I Sum Postop Eval Completion status Anesthesia document: Postop Eval 1 completed: Yes Anesthesia Postop Eval I Summary Anesthesia Postop Eval I Summary: Anesthesia Postop Eval I: Assessment Summary Airway patent Yes 12/05/23 07:19 [email or web address] Spontaneous unlabored Yes 12/05/23 07:19 [email or web address] respirations Mental status Asleep 12/05/23 07:19 [email or web address] nausea No 12/05/23 07:19 [email or web address] Vomiting No 12/05/23 07:19 [email or web address] Anesthesia Postop Eval I: Fluid Summary Crystalloid volume administer 400 12/05/23 07:19 [email or web address] (ml) Colloids volume administered ( ml) Blood Product volume administered (ml) Total IV fluid infused 400 12/05/23 07:19 [email or web address] Anesthesia Postop Eval I: Summary Notes Anesthesia Complication No 12/05/23 07:19 [email or web address] Anesthesia Complication Comment: Post-operative progress note Anesthesia: Postop Eval II Evaluation Mental status: Awake Pain Level: 0 nausea: No Vomiting: No
== END 2023-12-05 07:54 | disposition home or self-care (01) ==
LOC: EN 05:19 → AC 05:20
PROVIDERS: PCP Family Medicine; Referring Provider Family Medicine; Visit Provider Internal Medicine Gastroenterology
PROC: 0DJ08ZZ Inspection of Upper Intestinal Tract, Via Natural or Artificial Opening Endoscopic (ICD-10-PCS; CPT 43235; principal; 2023-12-05 06:25)
DX: K31.5 Obstruction of duodenum (principal); K90.0 Celiac disease; K21.00 Gastro-esophageal reflux disease with esophagitis, without bleeding; K29.80 Duodenitis without bleeding; Z79.899 Other long term (current) drug therapy; J45.909 Unspecified asthma, uncomplicated; Z87.19 Personal history of other diseases of the digestive system
CPT/HCPCS: 43239; 88305; J7120; J2405